=== PATIENT | male | born 1945 | race Asian ===

== ENCOUNTER 2024-09-11 01:29 | Inpatient (IN) | payer MEDICARE, SELFPAY ==
[2024-09-11] VITALS (9 sets, daily range): BP systolic 88–148; BP diastolic 49–65; PULSE 91–120; RESP 16–27; TEMP 36.3–39.5; O2SAT 94–98; BMI 23.5
--- NOTE | 2024-09-11 02:17 | DI.CT.S_ITS ---
PROCEDURE: CT ABDOMEN PELVIS W CON INDICATIONS: abd pain, fever, chills TECHNIQUE: After the administration of intravenous contrast, axial sections acquired from the lung bases to the pubic symphysis. Coronal and sagittal reformats were performed. For radiation dose reduction, the following was used: automated exposure control, adjustment of mA and/or kV according to patient size. COMPARISON: None. FINDINGS: Image quality: Diagnostic. Lower Chest: A small hiatal hernia is incidentally noted. ABDOMEN: Liver: No solid mass. Gallbladder: No radiopaque gallstones or wall thickening. Biliary ducts: No biliary dilation. Pancreas: No ductal dilation. Spleen: Size is within normal limits. Adrenal Glands: No adrenal nodules. Kidneys and Ureters: No hydronephrosis. No solid mass. No complex renal cystic lesion which requires follow up. Stomach and Bowel: Moderate wall thickening can be seen involving the proximal colon, particular involving the hepatic flexure and the transverse colon. Surrounding inflammatory change can be seen. The more distal colon demonstrates no significant abnormality. The appendix is abnormal, with a maximum caliber of 13 mm. Surrounding inflammatory change can be seen. No findings of adjacent abscess or gas can be seen. No dilated loops of small bowel are seen. Generalized wall thickening can be seen involving the small bowel. Peritoneum: Peritoneal abscess is seen. No abnormal intraperitoneal fluid. No free air. Ventral Wall: No significant ventral hernia. Abdominal Nodes: No retroperitoneal or mesenteric adenopathy by size criteria. Vessels: Aorta and inferior vena cava are normal in size. Atherosclerotic calcification is noted. PELVIS: Pelvic Organs: Unremarkable. Bladder: No bladder wall thickening, accounting for underdistention. Pelvic Nodes: No enlarged lymph nodes. Miscellaneous: There is a mild fat containing left inguinal hernia. Bones: No aggressive osseous abnormality. Focal L2-L3 degenerative change is seen. Milder degenerative changes are seen elsewhere. IMPRESSION: Appendicitis. No findings of perforation or abscess can be seen. Moderate proximal colonic wall thickening can be seen, which is worst involving the hepatic flexure and the transverse colon. Please correlate with potential infectious and inflammatory causes of colitis. No findings of perforation or abscess can be seen. The small bowel is also abnormal. Enteritis is suspected. Additional findings: Small hiatal hernia Focal L2-L3 degenerative change Mild fat containing left inguinal hernia Note: The colitis and small bowel wall thickening are not mention on the preliminary report. Discrepancies discussed by telephone with Dr. Yang at 9:46 a.m. [place] time on September 11, 2024. Dictated by: Terrance Hall M.D. on 09/11/2024 at 8:33 Approved by: Terrance Hall M.D. on 09/11/2024 at 8:48
--- NOTE | 2024-09-11 02:34 | ED.ABDPAIN ---
HPI - Abdominal Pain General Chief Complaint: Abdominal Pain Stated Complaint: Chills, vomiting, cant warm up Time Seen by Provider: 09/11/24 02:16 Source: patient Mode of arrival: Ambulatory History of Present Illness HPI narrative: (predominantly Estonian speaking, some Persian, occasional translation by son at bedside, declined tablet professional translation services when offered) 79-year-old male complains of central then right lower quadrant abdominal pain since 7:00 p.m. yesterday, nausea with nonbloody emesis x2, last bowel movement yesterday not loose, no black or red stools. Feels feverish today. No painful or frequent urination. No injury trauma or new activities. He does not take blood thinner medications. Related Data Allergies Allergy/AdvReac Type Severity Reaction Status Date / Time No Known Drug Allergies Allergy Verified 09/11/24 02:10 Patient History Social History Smoking Status: Never smoker Smoking Status: Never smoker Alcohol type: beer Exam Narrative Exam Narrative: GENERAL: Well-developed patient, in mild distress. HEAD: Atraumatic. Normocephalic. EYES: Pupils equal round and reactive. Extraocular motions intact. No scleral icterus. No injection or drainage. ENT: Nose without bleeding, purulent drainage. Throat without erythema, tonsillar hypertrophy or exudate. Airway patent. NECK: Trachea midline. Non tender CARDIOVASCULAR: Regular rate and rhythm without murmurs, gallops, or rubs. RESPIRATORY: Clear to auscultation. Breath sounds equal bilaterally. No wheezes, rales, or rhonchi. GASTROINTESTINAL: Right lower quadrant tenderness, no guarding or rebound, nondistended. Hypoactive bowel tones without rushes or tinkles. EXTREMITIES: No edema or joint tenderness. BACK: Nontender without deformity or crepitance. No flank tenderness. NEURO: AOx3. Motor functions grossly nonfocal. SKIN: No rash or erythema of visible areas Initial Vital Signs Initial Vital Signs: Vital Signs Pulse Rate 104 H 09/11/24 02:03 Blood Pressure 131/63 09/11/24 02:03 Pulse Oximetry 94 09/11/24 02:03 Course Orders Ordered: ED Orders 09/11/24 02:17 CT abdomen pelvis w con Stat Urinalysis and Microscopic Stat 09/11/24 02:18 EKG-12 Lead Stat 09/11/24 02:28 Complete Blood Count AUTO DIFF Stat Comprehensive Metabolic Panel Stat Lactate (Lactic Acid) Stat Lipase Stat Procalcitonin Stat 09/11/24 05:11 Blood Culture Stat Hydromorphone HCl (Hydromorphone Hcl 0.5 Mg/0.5 Ml Syringe) 0.5 mg IV Q2H PRN PRN Reason: Pain, Severe (7-10) Lactated Ringer's (Lactated Ringers) 1,000 mls @ 100 mls/hr IV CONT MANSOOR Naloxone HCl (Naloxone 0.4 Mg/Ml Vial) 0.2 mg IV Q2MIN PRN PRN Reason: Opiate Reversal Ondansetron HCl (Ondansetron 4 Mg/2 Ml Inj) 4 mg IV Q4HR PRN PRN Reason: nausea Discontinued Medications Al Hydrox/Mg Hydrox/Simethicone 30 ml/ Lidocaine HCl 15 ml 0 ml PO NOW ONE Stop: 09/11/24 04:54 Hydromorphone HCl (Hydromorphone Hcl 0.5 Mg/0.5 Ml Syringe) 0.5 mg IV NOW ONE Stop: 09/11/24 02:33 Last Admin: 09/11/24 02:39 Dose: 0.5 mg Documented By: YULISSA Sodium Chloride (Normal Saline 0.9%) 1,000 mls @ 1,000 mls/hr IV BOLUS ONE Stop: 09/11/24 03:15 Last Infusion: 09/11/24 03:42 Dose: Infused Documented By: Admin: 09/11/24 02:39 Dose: 1,000 mls/hr Documented By: YULISSA Sodium Chloride (Normal Saline 0.9%) 1,000 mls @ 1,000 mls/hr IV BOLUS ONE Stop: 09/11/24 04:16 Last Infusion: 09/11/24 04:41 Dose: Infused Documented By: Admin: 09/11/24 03:18 Dose: 1,000 mls/hr Documented By: YULISSA Acetaminophen (Ofirmev) 1,000 mg in 100 mls @ 400 mls/hr IV NOW ONE Stop: 09/11/24 03:55 Last Infusion: 09/11/24 04:41 Dose: Infused Documented By: Admin: 09/11/24 03:46 Dose: 400 mls/hr Documented By: YULISSA Piperacillin Sod/Tazobactam (Sod 4.5 gm/ Sodium Chloride) 100 mls @ 200 mls/hr IV NOW ONE Stop: 09/11/24 04:08 Ondansetron HCl (Ondansetron 4 Mg/2 Ml Inj) 4 mg IV NOW ONE Stop: 09/11/24 02:19 Last Admin: 09/11/24 02:39 Dose: 4 mg Documented By: YULISSA Pantoprazole Sodium (Pantoprazole 40 Mg Vial) 40 mg IV NOW ONE Stop: 09/11/24 04:51 Vital Signs Vital signs: Vital Signs - 8 hr 09/11/24 02:03 09/11/24 02:03 09/11/24 02:10 Temperature 101.4 F H Pulse Rate 104 H 102 H Respiratory Rate 16 Blood Pressure 131/63 131/63 Pulse Oximetry 94 95 Oxygen Delivery Method Room Air 09/11/24 02:30 09/11/24 02:30 09/11/24 03:00 Temperature Pulse Rate 99 H 104 H Respiratory Rate 26 H Blood Pressure 94/50 L Pulse Oximetry 94 94 Oxygen Delivery Method 09/11/24 03:00 09/11/24 03:39 09/11/24 03:39 Temperature 103.1 F H Pulse Rate 120 H Respiratory Rate 27 H Blood Pressure 148/64 H 116/59 L Pulse Oximetry 94 Oxygen Delivery Method Room Air 09/11/24 04:00 09/11/24 04:00 09/11/24 04:30 Temperature Pulse Rate 109 H 103 H Respiratory Rate 20 16 Blood Pressure 132/65 Pulse Oximetry 97 95 Oxygen Delivery Method 09/11/24 04:30 Temperature Pulse Rate Respiratory Rate Blood Pressure 109/55 L Pulse Oximetry Oxygen Delivery Method MDM - Abdominal Pain Lab Data Attestation: I reviewed the patient's lab results. Lab results narrative: White blood cell count 3400, hemoglobin 13.5, platelets 454,000 adequate. Glucose 138. BUN 21 with creatinine 0.92, serum CO2 22, potassium 3.5, sodium 136. T bili 1.9 elevated, other liver functions unremarkable. Lipase normal. Procalcitonin 0.163 not elevated. Lactate 2.6 elevated. Urinalysis pending. 09/11/24 02:28 09/11/24 02:28 Labs: Lab Results 09/11/24 Range/Units 02:28 WBC 3.4 L (4.5-11.0) X10^3/uL RBC 4.14 L (4.5-5.9) X10^6/uL Hgb 13.5 (13.5-17.5) g/dL Hct 38.2 L (41-53) % MCV 92.2 (80-100) fL MCH 32.6 (26-34) PG MCHC 35.3 (30-36) % RDW 13.4 (11.6-14.8) % Plt Count 154 (150-400) X10^3/uL Neut % (Auto) 90.0 H (50-75) % Lymph % (Auto) 8.6 L (25-40) % [place] % (Auto) 0.9 L (3-14) % Eos % (Auto) 0.4 L (2-4) % Baso % (Auto) 0.1 (0-2) % Neut # (Auto) 3100 (4460-0766) /uL Lymph # (Auto) 300 L (6045-2349) /uL [place] # (Auto) 0 (0-900) /uL Eos # (Auto) 0 (0-450) /uL Baso # (Auto) 0 (0-100) /uL Sodium 136 L (137-145) mmol/L Potassium 3.5 (3.4-5.1) mmol/L Chloride 104 (98-107) mmol/L Carbon Dioxide 22 (22-32) mmol/L BUN 21 H (9-20) mg/dL Creatinine 0.92 (0.66-1.25) mg/dL Estimated GFR > 60 (>60) mL/min BUN/Creatinine Ratio 22.8 H (6-22) Glucose 138 H (70-99) mg/dL Lactate 2.6 H (0.7-2.1) mmol/L Calcium 9.7 (8.4-10.2) mg/dL Total Bilirubin 1.9 H (0.2-1.3) mg/dL AST 31 (17-59) IU/L ALT 30 (<50) IU/L Alkaline Phosphatase 63 (38-126) U/L Total Protein 7.0 (6.3-8.2) g/dL Albumin 4.2 (3.5-5.0) g/dL Globulin 2.8 (1.7-4.1) g/dL Albumin/Globulin Ratio 1.5 (1.0-2.8) Lipase 68 (23-300) U/L Procalcitonin 0.163 (<0.5) ng/mL ECG Data Interpretation: 0305, sinus tachycardia with first-degree AV block, ventricular rate 109. No obvious ST segment elevation or depression changes. LA 214, QRS 96, QTC 422. MDM Narrative Medical decision making narrative: 79-year-old male with central then right lower quadrant abdominal pain since last night, some tenderness right lower quadrant. Suspicious for acute appendicitis. Keep NPO. IV fluid bolus. IV Dilaudid analgesic. Labs pending. DDx consider acute appendicitis, UTI/pyelo, ureteral stone, colitis, diverticulitis, other. Lab data: White blood cell count 3400, hemoglobin 13.5, platelets 454,000 adequate. Glucose 138. BUN 21 with creatinine 0.92, serum CO2 22, potassium 3.5, sodium 136. T bili 1.9 elevated, other liver functions unremarkable. Lipase normal. Procalcitonin 0.163 not elevated. Lactate 2.6 elevated. Urinalysis pending. Radiology called, CT showed acute appendicitis, await printed report. No verbal report mention of perforation/abscess. We will contact surgery on-call. ABEL HERNANDEZ Zosyn. [phone], case discussed with Dr. Lopez who requests patient to be admitted to hospitalist, to OR later this morning. Hospitalist paged. [phone], case discussed with hospitalist Dr. Louise who accepts patient for admission CT abdomen and pelvis report now available from tele radiology. Impression: ?Findings compatible with acute appendicitis. No periappendiceal focal drainable collection or pneumoperitoneum.. See tele radiology report. Critical Care Time Critical Care Time Total Critical Care Time: 35 Attestation: The high probability of a clinically significant, sudden or life threatening deterioration of the [abdominal pelvic, gastrointestinal] system(s) required my full and direct attention, intervention and personal management. The aggregate critical care time was [35] minutes. This time is in addition to time spent performing reported procedures but includes the following: [x] Data Review and interpretation [x] Patient assessment and monitoring of vital signs [x] Documentation [x] Medication orders and management Discharge Plan Departure Patient Disposition: Admitted As Inpatient Clinical Impression: Acute appendicitis Admit Date/Time: 09/11/24 04:30 Admit Provider: Star Negrete
[2024-09-11] MEDS: ONDANSETRON 4 MG/2 ML INJ IV (02:39)
[2024-09-11] MEDS: SODIUM CHLORIDE 0.9% 1,000 ML 1000 ML IV ×3 (02:39→08:00)
[2024-09-11 02:46] LABS: Add Manual Diff / Slide Review NO; Hematocrit 38.2 % (41-53); Hemoglobin 13.5 g/dL (13.5-17.5); Lymphocytes Absolute Auto 300 /uL (1100-4500); Mean Corpuscular HGB Conc 35.3 % (30-36); Mean Corpuscular Hemoglobin 32.6 PG (26-34); Mean Corpuscular Volume 92.2 fL (80-100); Platelet Count 154 X10^3/uL (150-400)
[2024-09-11 02:50] LABS: Lactate (Lactic Acid) 2.6 mmol/L (0.7-2.1)
[2024-09-11 02:51] LABS: Alanine Aminotransferase 30 IU/L (<50); Albumin 4.2 g/dL (3.5-5.0); Albumin Globulin Ratio 1.5 (1.0-2.8); Alkaline Phosphatase 63 U/L (38-126); Blood Urea Nitrogen 21 mg/dL (9-20); Calcium 9.7 mg/dL (8.4-10.2); Carbon Dioxide 22 mmol/L (22-32); Chloride 104 mmol/L (98-107); Estimated Glomerular Filt Rate > 60 mL/min (>60); Globulin 2.8 g/dL (1.7-4.1); Glucose 138 mg/dL (70-99); HEMOLYSIS < 15 (0-50); Lipase 68 U/L (23-300); Potassium 3.5 mmol/L (3.4-5.1); Sodium 136 mmol/L (137-145); Total Protein 7.0 g/dL (6.3-8.2)
--- NOTE | 2024-09-11 03:05 | EKG_ITS ---
[place] [id number] [id number] Test Date: 2024-09-11 Pat Name: Vianney Shrestha Department: [facility] Room: Gender: Male [employer]: : 1945 Requested By: Order Number: [id number] Reading MD: Yazan Sousa Measurements Intervals [place] Rate: 109 P: 66 WV: 214 QRS: -27 QRSD: 96 T: -45 QT: 314 QTc: 422 Interpretive Statements Sinus tachycardia with 1st degree AV block Moderate voltage criteria for LVH, may be normal variant ( R in aVL , [place] product ) Nonspecific ST abnormality Electronically Signed On 09-17-2024 7:17:44 PDT by Yazan Sousa
[2024-09-11 03:08] LABS: Procalcitonin 0.163 ng/mL (<0.5)
--- NOTE | 2024-09-11 03:23 | PC.NURSE ---
Pt to imaging via ED stretcher with office machine technician
[2024-09-11] MEDS: ACETAMINOPHEN IV 1,000 MG/100 ML VIAL 400 MG IV (03:46)
[2024-09-11 04:09] LABS: Reflexed Lactate in 2 Hours Y
--- NOTE | 2024-09-11 05:33 | PM.HP.1 ---
History of Present Illness History of Present Illness Date Patient Seen: 09/11/24 Time Patient Seen: 06:00 Chief complaint: Chills, vomiting, cant warm up Narrative: 79 y/o with PMH of HTN and NIDDM, developed abdominal pain 24 hours ago, initially in the center then lateralizing to RLQ. Nauseated since then with two episodes of emesis. Without recent change of bowel habits, w/o dark or bloody stool, w/o hematemesis. On admission febrile, has chills. CT abdomen showing appendicitis. Consulted surgeon plans to operate today. Admitted to medicine. [facility] Medical History (Updated 09/11/24 @ 06:44 by Star Louise MD) HTN (hypertension) Diabetes Social History household members: spouse Smoking Status: Never smoker Meds Home Medications and Allergies Allergies Allergy/AdvReac Type Severity Reaction Status Date / Time No Known Drug Allergies Allergy Verified 09/11/24 02:10 Review of Systems Review of Systems Narrative: General - fever, chills GI - nausea, vomiting, abdominal pain CVS - w/o chest pain or palpitations RS - w/o shoprtness of breath UG - w/o voiding difficulties Exam Vital Signs (past 8 hours): - 09/11/24 02:03 09/11/24 02:03 09/11/24 02:10 Temperature 101.4 F H Pulse Rate 104 H 102 H Respiratory Rate 16 Blood Pressure 131/63 131/63 Pulse Oximetry 94 95 Oxygen Delivery Method Room Air 09/11/24 02:30 09/11/24 02:30 09/11/24 03:00 Temperature Pulse Rate 99 H 104 H Respiratory Rate 26 H Blood Pressure 94/50 L Pulse Oximetry 94 94 Oxygen Delivery Method 09/11/24 03:00 09/11/24 03:39 09/11/24 03:39 Temperature 103.1 F H Pulse Rate 120 H Respiratory Rate 27 H Blood Pressure 148/64 H 116/59 L Pulse Oximetry 94 Oxygen Delivery Method Room Air 09/11/24 04:00 09/11/24 04:00 09/11/24 04:30 Temperature Pulse Rate 109 H 103 H Respiratory Rate 20 16 Blood Pressure 132/65 Pulse Oximetry 97 95 Oxygen Delivery Method 09/11/24 04:30 09/11/24 05:00 09/11/24 05:00 Temperature 100.2 F H Pulse Rate 101 H Respiratory Rate 20 Blood Pressure 109/55 L 96/54 L Pulse Oximetry 95 Oxygen Delivery Method Room Air Oxygen Delivery Method Room Air Narrative Exam Narrative: General - in no distress, well developed, son at bedside HEENT - normocephalic, eomi CVS - RRR, w/o gallops or murmurs RS - CTA b/l GI - tender RLQ on palpation Neuro - w/o deficits, lucid, decisional. Needs some help with translation, confederated salish German. Objective ECG Impression: Sinus tachycardia 109, TN 214 ms, 1st degree AV block Imaging CT scan - abdomen: Radiologist's impression: Findings compatible with acute appendicitis. No periappendiceal focal drainable collection or pneumoperitoneum Labs 09/11/24 02:28 09/11/24 02:28 Labs: Laboratory Results - last 24 hr 09/11/24 02:28 WBC 3.4 L RBC 4.14 L Hgb 13.5 Hct 38.2 L MCV 92.2 MCH 32.6 MCHC 35.3 RDW 13.4 Plt Count 154 Neut % (Auto) 90.0 H Lymph % (Auto) 8.6 L [place] % (Auto) 0.9 L Eos % (Auto) 0.4 L Baso % (Auto) 0.1 Neut # (Auto) 3100 Lymph # (Auto) 300 L [place] # (Auto) 0 Eos # (Auto) 0 Baso # (Auto) 0 Sodium 136 L Potassium 3.5 Chloride 104 Carbon Dioxide 22 BUN 21 H Creatinine 0.92 Estimated GFR > 60 BUN/Creatinine Ratio 22.8 H Glucose 138 H Lactate 2.6 H Calcium 9.7 Total Bilirubin 1.9 H AST 31 ALT 30 Alkaline Phosphatase 63 Total Protein 7.0 Albumin 4.2 Globulin 2.8 Albumin/Globulin Ratio 1.5 Lipase 68 Procalcitonin 0.163 Assessment & Plan Assessment and plan (1) Acute appendicitis: Status: Acute (2) Diabetes: Status: Acute (3) HTN (hypertension): Status: Acute Assessment & Plan narrative: Acute appendicitis - NPO - IVFs - prn antiemetics, analgetics - Zosyn NIDDMT2 - at home on metformin 500 mg ER daily - SS while NPO HTN - at home on Norvasc 5 mg daily - on hold DVT prophylaxis - SCDs GHI prophylaxis - PPI IV x 1 Patient consented to real time, audio-visual, telemedicine encounter. Patient located at [place], [place], provider located in [place]. Time-Based Coding :: [TOTAL MINUTES] spent with patient and on the chart (including review of chart, obtaining history, exam, reviewing outside data, placing orders, documenting exam and treatment plan, and counseling patient) on [DATE].
[2024-09-11] MEDS: PIPERACILLIN/TAZO 4.5 GM in SODIUM CHLORIDE 0.9% 100 ML IV (05:50)
--- NOTE | 2024-09-11 05:58 | PM.HP.IH.1 ---
History of Present Illness History of Present Illness Date Patient Seen: 09/11/24 Time Patient Seen: 05:45 Date of Onset of Symptoms: 09/10/24 Chief complaint: Chills, vomiting, cant warm up Narrative: Patient is a 79-year-old [place] male that presents to the emergency room with abdominal pain which started on 09/10/2024 at approximately 9:00 a.m.. Patient is currently vacationing in the area and a camp site. Patient states the pain started periumbilically then gradually migrated down to the right lower quadrant denies any radiation. He had some nausea vomiting without any hematemesis UA last had fluids at 2:00 a.m.. Patient speaks small amount of Uzbek son is a oil change technician. Patient was worked up in the emergency room was noted to have a WBC of 3.4 hemoglobin is 13.5 hematocrit is 38.2 platelets are 154,000. Sodium is 136 potassium 3.5 chloride 104 bicarb is 22 BUN of 21 creatinine 0.92 random blood sugar is 138. Lactic acid level is 2.6 lipase is 68 total bilirubin is slightly elevated at 1.9 AST is 31 ALT is [address] scan was performed which shows some slight degenerative joint disease some hardening of the arteries but no occlusive disease normal gallbladder appendix is enlarged and inflamed with some periappendiceal inflammation no gross abscesses noted moderate stool burden is noted in the colon. I was asked see the patient for surgical evaluation. Allergies: NKDA Medications: A list was not brought to the hospital but patient is on a blood pressure medicine which he takes at night and a diabetic pill names of medicines are not known we will try to obtain list. Past medical history: Corrective lenses, atherosclerotic vascular disease, degenerative joint disease, hypertension, [id number] diabetes mellitus. Patient and family deny any other heart lungs digestive musculoskeletal neurological seizure disorder psychiatric problems risks are infectious diseases HIV or AIDS. Past surgical history: History of a right hand tendon release, EGD colonoscopy last done in 2023 negative Family history: Patient denies any tobacco or recreational drug usage has 1 beer per month. Vitals: Temperature was 100.2? pulse is 101 respirations 20 BP is 96/54 patient weighs 137 lb Head is normocephalic eyes PERRLA EOMI is intact oropharyngeal cavity is in moderate repair. Heart regular rate and rhythm without murmurs lungs are clear to auscultation good inspiratory and expiratory effort good chest wall motion noted. Abdomen is soft nondistended with hypoactive bowel sounds negative Jese's colons great Leos's Tavares's positive McBurney's positive rebound positive Rovsing's positive peritoneal signs. Extremities good muscle tone and strength for patient's age no gross deficits are elicited. Impression: Right lower quadrant pain of less than [address] scan showing an inflamed appendix Hypertension [id number] diabetes mellitus Atherosclerotic vascular disease Slight hypotension possible dehydration Plan: Discussed with patient and family of the findings need for laparoscopic appendectomy procedure risks and complications were fully explained including risk for cardiopulmonary depression infection bleeding bowel injury and conversion to the open procedure they understand and consent. On CT scan patient's stomach had considerable amount of liquids in it discussed with anesthesia we will allow the stomach to empty schedule the patient for 9:00 a.m. we will continue with IV antibiotics. All questions were answered the patient and family satisfaction we will follow patient closely admit to the hospital postoperatively. [facility] Social History Smoking Status: Never smoker Meds Home Medications and Allergies Allergies Allergy/AdvReac Type Severity Reaction Status Date / Time No Known Drug Allergies Allergy Verified 09/11/24 02:10 Exam Vital Signs (past 8 hours): - 09/11/24 02:03 09/11/24 02:03 09/11/24 02:10 Temperature 101.4 F H Pulse Rate 104 H 102 H Respiratory Rate 16 Blood Pressure 131/63 131/63 Pulse Oximetry 94 95 Oxygen Delivery Method Room Air 09/11/24 02:30 09/11/24 02:30 09/11/24 03:00 Temperature Pulse Rate 99 H 104 H Respiratory Rate 26 H Blood Pressure 94/50 L Pulse Oximetry 94 94 Oxygen Delivery Method 09/11/24 03:00 09/11/24 03:39 09/11/24 03:39 Temperature 103.1 F H Pulse Rate 120 H Respiratory Rate 27 H Blood Pressure 148/64 H 116/59 L Pulse Oximetry 94 Oxygen Delivery Method Room Air 09/11/24 04:00 09/11/24 04:00 09/11/24 04:30 Temperature Pulse Rate 109 H 103 H Respiratory Rate 20 16 Blood Pressure 132/65 Pulse Oximetry 97 95 Oxygen Delivery Method 09/11/24 04:30 09/11/24 05:00 09/11/24 05:00 Temperature 100.2 F H Pulse Rate 101 H Respiratory Rate 20 Blood Pressure 109/55 L 96/54 L Pulse Oximetry 95 Oxygen Delivery Method Room Air Oxygen Delivery Method Room Air Objective Labs 09/11/24 02:28 09/11/24 02:28 Labs: Laboratory Results - last 24 hr 09/11/24 02:28 WBC 3.4 L RBC 4.14 L Hgb 13.5 Hct 38.2 L MCV 92.2 MCH 32.6 MCHC 35.3 RDW 13.4 Plt Count 154 Neut % (Auto) 90.0 H Lymph % (Auto) 8.6 L [place] % (Auto) 0.9 L Eos % (Auto) 0.4 L Baso % (Auto) 0.1 Neut # (Auto) 3100 Lymph # (Auto) 300 L [place] # (Auto) 0 Eos # (Auto) 0 Baso # (Auto) 0 Sodium 136 L Potassium 3.5 Chloride 104 Carbon Dioxide 22 BUN 21 H Creatinine 0.92 Estimated GFR > 60 BUN/Creatinine Ratio 22.8 H Glucose 138 H Lactate 2.6 H Calcium 9.7 Total Bilirubin 1.9 H AST 31 ALT 30 Alkaline Phosphatase 63 Total Protein 7.0 Albumin 4.2 Globulin 2.8 Albumin/Globulin Ratio 1.5 Lipase 68 Procalcitonin 0.163 Assessment & Plan Time-Based Coding :: [TOTAL MINUTES] spent with patient and on the chart (including review of chart, obtaining history, exam, reviewing outside data, placing orders, documenting exam and treatment plan, and counseling patient) on [DATE]. PROFEE Window Trimmer Apprentice Document charge(s): Yes
[2024-09-11 06:43] LABS: Appearance Urine UA CLEAR; Bilirubin Urine UA NEGATIVE (NEGATIVE); Color Urine UA YELLOW; Glucose Urine UA NEGATIVE (Negative); Ketones Urine UA NEGATIVE (NEGATIVE); Leukocyte Esterase Urine UA NEGATIVE (NEGATIVE); Nitrite Urine UA NEGATIVE (Negative); Occult Blood Urine UA NEGATIVE (Negative); Protein Urine UA NEGATIVE (Negative); Specific Gravity Urine UA <=1.005 (1.000-1.035); Urobilinogen Urine UA 0.2 E.U./dL (0.2); pH Urine UA 6.5 (4.5-8.0)
[2024-09-11 06:51] LABS: Culture Indicated Urine Cult Not Indicated
[2024-09-11] MEDS: LACTATED RINGERS 1,000 ML 100 ML IV (06:51)
[2024-09-11] MEDS: PANTOPRAZOLE 40 MG VIAL IV (06:53)
[2024-09-11 07:12] LABS: Lactate 2HR (Lactic Acid Rflx) 1.9 mmol/L (0.7-2.1)
--- NOTE | 2024-09-11 07:17 | PM.HP.IH.1 ---
History of Present Illness History of Present Illness Date Patient Seen: 09/11/24 Time Patient Seen: 07:22 Chief complaint: Chills, vomiting, cant warm up Narrative: 79-year-old Hungarian speaking patient from [facility] with diet-controlled diabetes and hypertension has been camping in [place] developed right lower quadrant abdominal pain starting at 7:00 p.m. yesterday, with nausea and vomiting twice yesterday, chills and denies chest pain, shortness for breath, hematemesis, melena or hematochezia with his last bowel movement yesterday. CT abdomen pelvis showed periappendiceal inflammation without abscess, with notable aortoiliac atherosclerosis. His white blood count is 4.3 and laboratory evaluation otherwise unremarkable with normal comprehensive metabolic panel with glucose 138, bilirubin 1.9, lipase 68, and procalcitonin normal at 0.163. On my review initial EKGs notable for [address] segment depression in leads V5 and V6. Repeat EKG shows normalized ST segment and these depressions however troponin is elevated at 0.103. He continues to deny chest pain. Case is reviewed with Dr. Lopez the of general surgery and arrangements are currently being made for transfer to a facility with Cardiology Services. Case is reviewed with Dr. Stevan Orona of Cardiology and Dr. Vielka Walker of [facility], with arrangements for pending to the hospitalist services. The patient is currently being heparinized on the cardiac heparin protocol. Blood pressures low 83 systolic and fluid boluses are starting, with hypotension at this point attributed to volume depletion. 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 [facility] Medical History (Updated 09/11/24 @ 06:44 by Star Louise MD) Diabetes HTN (hypertension) Social History household members: spouse Meds Home Medications and Allergies Allergies Allergy/AdvReac Type Severity Reaction Status Date / Time No Known Drug Allergies Allergy Verified 09/11/24 02:10 Review of Systems Review of Systems ROS: Yes All systems reviewed with the patient and are negative except as otherwise documented Exam Vital Signs (past 8 hours): - 09/11/24 02:03 09/11/24 02:03 09/11/24 02:10 Temperature 101.4 F H Pulse Rate 104 H 102 H Respiratory Rate 16 Blood Pressure 131/63 131/63 Pulse Oximetry 94 95 Oxygen Delivery Method Room Air 09/11/24 02:30 09/11/24 02:30 09/11/24 03:00 Temperature Pulse Rate 99 H 104 H Respiratory Rate 26 H Blood Pressure 94/50 L Pulse Oximetry 94 94 Oxygen Delivery Method 09/11/24 03:00 09/11/24 03:39 09/11/24 03:39 Temperature 103.1 F H Pulse Rate 120 H Respiratory Rate 27 H Blood Pressure 148/64 H 116/59 L Pulse Oximetry 94 Oxygen Delivery Method Room Air 09/11/24 04:00 09/11/24 04:00 09/11/24 04:30 Temperature Pulse Rate 109 H 103 H Respiratory Rate 20 16 Blood Pressure 132/65 Pulse Oximetry 97 95 Oxygen Delivery Method 09/11/24 04:30 09/11/24 05:00 09/11/24 05:00 Temperature 100.2 F H Pulse Rate 101 H Respiratory Rate 20 Blood Pressure 109/55 L 96/54 L Pulse Oximetry 95 Oxygen Delivery Method Room Air Oxygen Delivery Method Room Air Narrative Exam Narrative: GENERAL: This is a well-nourished, well-developed patient, as needed, speaking some Cook Islander, with his son at bedside providing translation, appears fatigued, acutely ill, denying chest pain, noting right lower quadrant abdominal discomfort. HEAD: Atraumatic. Normocephalic. No temporal or scalp tenderness. EYES: Pupils equal round and reactive. Extraocular motions intact. No scleral icterus. No injection or drainage. ENT: Mucous membranes pink and moist. NECK: Trachea midline. No JVD, bruits or lymphadenopathy. Supple, nontender, no meningeal signs. CARDIOVASCULAR: Regular rate and rhythm without murmurs, gallops, or rubs. RESPIRATORY: Clear to auscultation. GASTROINTESTINAL: Abdomen soft, moderate right lower abdominal tenderness, no guarding, rebound or rigidity. EXTREMITIES: No clubbing, cyanosis, or edema. BACK: Nontender without deformity or crepitance. No flank tenderness. NEUROLOGIC: Alert, oriented, speech fluent, full upper and lower motor strength, no focal deficits evident. DERMATOLOGIC: No rashes or skin lesions. Objective ECG Impression: #1 at 03:05: Sinus tachycardia 109 beats per minute, first-degree AV block (214 millisecond), moderate LVH criteria, [address] depression in leads V5 and V6, nonspecific T-wave flattening leads 2, 3, AVF. #2 at 07:36: Sinus rhythm at 93 beats per minute with first-degree AV block (232 millisecond), moderate LVH criteria, normalized ST segment depression V5 and V6, T-wave flattening in leads 2 and AVF with T-wave inversion in lead [address] scan - abdomen: My impression: Per report and my image review there is periappendiceal inflammation, no gross abscesses, and extensive aortoiliac calcification. Radiologist's impression: Pending. Labs 09/11/24 02:28 09/11/24 02:28 Labs: Laboratory Results - last 24 hr 09/11/24 09/11/24 02:28 06:35 WBC 3.4 L RBC 4.14 L Hgb 13.5 Hct 38.2 L MCV 92.2 MCH 32.6 MCHC 35.3 RDW 13.4 Plt Count 154 Neut % (Auto) 90.0 H Lymph % (Auto) 8.6 L [place] % (Auto) 0.9 L Eos % (Auto) 0.4 L Baso % (Auto) 0.1 Neut # (Auto) 3100 Lymph # (Auto) 300 L [place] # (Auto) 0 Eos # (Auto) 0 Baso # (Auto) 0 Sodium 136 L Potassium 3.5 Chloride 104 Carbon Dioxide 22 BUN 21 H Creatinine 0.92 Estimated GFR > 60 BUN/Creatinine Ratio 22.8 H Glucose 138 H Lactate 2.6 H Calcium 9.7 Total Bilirubin 1.9 H AST 31 ALT 30 Alkaline Phosphatase 63 Total Protein 7.0 Albumin 4.2 Globulin 2.8 Albumin/Globulin Ratio 1.5 Lipase 68 Procalcitonin 0.163 Urine Color Yellow Urine Appearance Clear Urine pH 6.5 Ur Specific Broadbent <=1.005 Urine Protein Negative Urine Glucose (UA) Negative Urine Ketones Negative Urine Occult Blood Negative Urine Nitrate Negative Urine Bilirubin Negative Urine Urobilinogen 0.2 Ur Leukocyte Esterase Negative Urine RBC None seen Urine WBC None seen Ur Squamous Epith Cells 0-1 /hpf Urine Bacteria None seen Ur Culture Indicated? Cult not indicated Vol Urine Centrifuged 10ml (spun) Assessment & Plan Assessment & Plan narrative: 1. Acute appendicitis. 2. Acute non ST segment elevation myocardial infarction 3. Acute hypotension, likely due to volume depletion. 4. Diabetes mellitus, diet controlled. 5. Hypertension. Discussion: The patient presents with acute appendicitis. He has no referable cardiac symptoms though has evolving EKG changes and biochemical evidence of an acute non ST segment elevation myocardial infarction. Cardiac heparin protocol started. Case is reviewed with Cardiology and surgery at a nearby hospital with tertiary level services not present at this facility. Current arrangements are pending for transfer to the hospitalist service with above-mentioned consult taking services, who has graciously agreed to accept outpatient. Time-Based Coding :: [TOTAL MINUTES] spent with patient and on the chart (including review of chart, obtaining history, exam, reviewing outside data, placing orders, documenting exam and treatment plan, and counseling patient) on [DATE]. 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
--- NOTE | 2024-09-11 07:36 | EKG_ITS ---
[facility] [address] [place] [address] Test Date: 2024-09-11 Pat Name: Vianney Shrestha Department: [facility] Room: 222 Gender: Male Certified Social Workers In Health Care: : 1945 Requested By: Order Number: [id number] Reading MD: Yazan Sousa Measurements Intervals [place] Rate: 93 P: 25 WV: 232 QRS: -15 QRSD: 108 T: -25 QT: 368 QTc: 457 Interpretive Statements Sinus rhythm with 1st degree AV block Moderate voltage criteria for LVH, may be normal variant ( R in aVL , Santy product ) Electronically Signed On 09-17-2024 7:21:11 PDT by Yazan Sousa
[2024-09-11 08:14] LABS: Troponin I 0.103 ng/mL (0.01-0.034)
--- NOTE | 2024-09-11 08:45 | CM.DANOTE ---
B DCP Assessment note pt is a 79yo M admitted with appendicitis, was going to go to surgery later today but has had some cardiac changes indicating transfer to higher level of care. transfer pending. 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 here with son Princess from [place]. visiting area? per chart, pt is Occitan Fijian, Kuwaiti speaking with minimal translation assistance from son. Denied translation tablet. CM Team will continue to follow as needed in case DCP needs arise. plan to transfer to higher level of care. [facility] [place] Discharge Planning/Care Management CM Discharge Assessment Start: 09/11/24 05:47 Freq: Status: Active Protocol: Document 09/11/24 08:44 SL (Rec: 09/11/24 08:45 SL Desktop) Discharge Planning Assessment Assigned Discharge HUBER Melo Air Conditioning Service Technician DPOA/Assigned debby Sánchez Designee Name Contact Information [phone] Advance Directives? No History Provided By Patient,Family Member Prior Living House Arrangements Household Members spouse Discharge Plan Transfer to Higher Level of Care Transportation transfer pending Arrangement Review Status In Process Please Provide Date 09/11/24 Initial DC Assessment Was Performed Next Review Type Continued Stay Review
[2024-09-11] MEDS: HEPARIN DRIP 25,000 UNIT/500 ML IV.SOLN 14.914 UNIT IV (09:00)
[2024-09-11] MEDS: HEPARIN 5,000 UNIT/ML VIAL 3500 UNIT IV (09:13)
[2024-09-11 09:20] LABS: PTT Partial Thromboplastin Tim 28 SECONDS (25.1-36.5)
[2024-09-11 09:21] LABS: Lactate (Lactic Acid) 1.9 mmol/L (0.7-2.1)
[2024-09-11] MEDS: DEXTROSE 5%-LACTATED RINGERS 1,000 ML 125 ML IV (09:40)
--- NOTE | 2024-09-11 09:50 | PC.NURSE ---
Addendum entered by Emily Cheney R.N. 09/11/24 12:26: Patient just left via ALS transport, prior patient had another 1000l bolus, his bp went down to 77/30s systolic, and then dopamine drip started per Service Unit Operator/RN. He left with ivf, cardiac heparin drip, and dopamin drip. 0.5mg of iv dilaudid given to patient for 7/10 pain which was helpful. Report called to Yari in PCU at [facility]. Original Note: Patients ekg showed ST changes, his troponin level is 0.103, per patient will be transferred out to [facility]. He has been started on a cardiac heparin drip at 12/u/kg/hr and was given a bolus of 3500 u of heparin. Second ivf stared to r.arm and patient has D5LR infusing at 125cc/hr. He had a 1000cc bolus of NS at 0800 for low blood pressures of 80s/50s, his pressure is now up to 90s/50s. He was just given 0.5mg of iv dilaudid for r.lower quadrant pain at 7/10. His baseline PTT is 28. Patient is lying supine and resting until he will be discharged. Family is in room and aware of what is happening.
[2024-09-11] MEDS: PIPERACILLIN/TAZO 3.375 GM in SODIUM CHLORIDE 0.9% 100 ML IV (10:01)
[2024-09-11] MEDS: DOPAMINE HCL IN DEXTROSE 5 % 400 MG/250 ML PLAST..BAG 11.652 MG IV (11:58)
[2024-09-11 16:01] LABS: Acinetobacter calcoa-baumannii Not Detected (Not Detect); Bacteroides fragilis Not Detected (Not Detect); CTX-M Resistance Not Detected (Not Detect); Candida auris Not Detected (Not Detect); Candida glabrata Not Detected (Not Detect); Cryptococcus neoformans/gatti Not Detected (Not Detect); Enterobacterales Detected (Not Detect); Enterococcus faecalis Not Detected (Not Detect); Enterococcus faecium Not Detected (Not Detect); IMP Resistance Not Detected (Not Detect); KPC Resistance Not Detected (Not Detect); Klebsiella aerogenes Not Detected (Not Detect); NDM Resistance Not Detected (Not Detect); OXA-48-like Resistance Not Detected (Not Detect); Proteus species Not Detected (Not Detect); Serratia marcescens Not Detected (Not Detect); Staphylococcus epidermidis Not Detected (Not Detect); Staphylococcus lugdunensis Not Detected (Not Detect); Staphylococcus species Not Detected (Not Detect); Stenotrophomonas maltophilia Not Detected (Not Detect); Streptococcus agalactiae (Gr B Not Detected (Not Detect); Streptococcus pneumonia Not Detected (Not Detect); Streptococcus pyogenes (Gr A) Not Detected (Not Detect); Streptococcus species Not Detected (Not Detect); VIM Resistance Not Detected (Not Detect); mcr-1 Resistance Not Detected (Not Detect)
[2024-09-13 07:13] LABS: Labcorp Creatine Kinase MB 1.4 ng/mL (0.0-10.4)
== END 2024-09-11 12:26 | disposition short-term general hospital (02) | DRG 393 ==
LOC: ED 04:11 → AC 04:31
PROVIDERS: Internal Medicine; Admitting Provider Internal Medicine; Emergency Provider Emergency Medicine; Referring Provider Emergency Medicine; Visit Provider Internal Medicine
DX: K35.80 Unspecified acute appendicitis (principal); I21.4 Non-ST elevation (NSTEMI) myocardial infarction; E11.9 Type 2 diabetes mellitus without complications; I10 Essential (primary) hypertension; I25.10 Atherosclerotic heart disease of native coronary artery without angina pectoris; I95.9 Hypotension, unspecified; E86.0 Dehydration; Z79.84 Long term (current) use of oral hypoglycemic drugs
CPT/HCPCS: 36415; 74177; 80053; 81001; 82553; 82962; 83605; 83690; 84145; 84484; 85025; 85730; 87040; 87154; 87186; 93005; 96361; 96365; 96375; 99284; 99291; J0131; J1171; J1644; J2405; J2470; J2543; J7121; Q9967